=== PATIENT | female | born 1995 | race Caucasian/White ===

== ENCOUNTER 2019-06-06 18:29 | Emergency (ER) | payer BC ==
[~2019-06-06] VITALS: Ht 154.9 cm; Wt 49.9 kg
[~2019-06-06 18:29] MED LIST: ATIVAN1 MG PO; ZOLOFT 50 MG TA50 M1 PO
[2019-06-06] MEDS ORDERED: XANAX 0.5 MG0.5 M1 PO (18:39)
[2019-06-06] MEDS ORDERED: EVEKEO10 MG PO (18:40)
[2019-06-06] MEDS ORDERED: LAMICTAL200 MG PO (18:40)
[2019-06-06] MEDS ORDERED: BRINTELLIX10 MG PO (18:41)
[2019-06-06] MEDS ORDERED: ZOFRAN4 MG PO (18:41)
[2019-06-06 20:58] LABS: URINE BLOOD NEGATIVE (Negative); URINE CLARITY CLEAR; URINE COLOR YELLOW; URINE GLUCOSE-RANDOM NEGATIVE (Negative); URINE KETONES NEGATIVE (Negative); URINE LEUKOCYTES-REFLEX NEGATIVE (Negative); URINE NITRITE-REFLEX NEGATIVE (Negative); URINE PROTEIN TRACE (Negative); URINE SPECIFIC GRAVITY 1.025 (1.005-1.030)
[2019-06-06 21:03] LABS: ICTOTEST (BILI CONFIRMATORY) Negative (Negative); URINE BILIRUBIN 1+ (Negative)
[2019-06-06 21:13] LABS: ABSOLUTE LYMPHOCYTES 0.9 thou/uL (0.8-5.3); ABSOLUTE MONOCYTES 0.4 thou/uL (0.0-1.2); BASOPHILS 0.2 %; EOSINOPHILS 0.5 %; HEMATOCRIT 40.2 % (37.0-47.0); HEMOGLOBIN 13.9 gm/dL (12.0-15.0); MCH 31.7 pg (26.0-34.0); MCHC 34.7 g/dL (28.0-37.0); MCV 91.4 fL (80.0-100.0); MONOCYTES 6.8 %; MPV 9.8 fl. (7.2-11.1); NUCLEATED RBCS 0 /100WBC; PLATELET COUNT* 196 thou/uL (150-400); POLYS 78.5 %; RDW-CV 13.2 % (10.5-14.5); WBC 6.4 thou/uL (4.0-11.0)
[2019-06-06 21:21] LABS: CALCIUM 9.2 mg/dL (8.5-10.1); CREATININE 0.9 mg/dL (0.6-1.3); POTASSIUM 3.7 mmol/L (3.5-5.1)
[2019-06-06 21:26] LABS: ALBUMIN 4.2 g/dL (3.4-5.0); TOTAL BILIRUBIN 0.7 mg/dL (<0.1-1.0); TOTAL PROTEIN 7.9 g/dL (6.4-8.2)
[2019-06-06 21:48] LABS: INFLUENZA A ANTIGEN Negative (Negative); INFLUENZA B ANTIGEN Negative (Negative)
[2019-06-06] MEDS ORDERED: ZOFRAN ODT4 MG PO (21:51)
[2019-06-06] MEDS ORDERED: LORCET 5-325 M1 EACH PO (21:51)
[2019-06-06 22:00] VITALS: BP 104/65
== END 2019-06-06 22:01 | disposition home or self-care (01) ==
LOC: M.ERS 18:29
PROVIDERS: Emergency Medicine
DX: R10.13 Epigastric pain (principal); R10.31 Right lower quadrant pain; R10.32 Left lower quadrant pain; F31.9 Bipolar disorder, unspecified; F41.9 Anxiety disorder, unspecified